=== PATIENT | male | born 1980 | race Caucasian/White ===

== ENCOUNTER 2016-10-17 08:55 | Emergency (ER) | payer OTHER ==
[~2016-10-17] VITALS: Ht 177.8 cm; Wt 98.0 kg
[2016-10-17 11:10] VITALS: BP 129/58
== END 2016-10-17 11:10 | disposition home or self-care (01) ==
LOC: ED 08:55
DX: J03.90 Acute tonsillitis, unspecified (principal); B34.9 Viral infection, unspecified; R03.0 Elevated blood-pressure reading, without diagnosis of hypertension
CPT/HCPCS: J1100

== ENCOUNTER 2016-10-19 20:23 | Emergency (ER) | payer OTHER ==
[2016-10-19 20:58] VITALS: BP 137/90
== END 2016-10-20 00:34 | disposition left against medical advice (07) ==
LOC: ED 20:23
DX: Z53.21 Procedure and treatment not carried out due to patient leaving prior to being seen by health care provider (principal)

== ENCOUNTER 2018-01-11 09:22 | Emergency (ER) | payer OTHER ==
[~2018-01-11] VITALS: Ht 175.3 cm; Wt 97.2 kg
[2018-01-11 09:27] VITALS: Ht 175.3 cm; Wt 97.2 kg
[2018-01-11 10:29] LABS: CALCIUM 8.8 mg/dL (8.5-10.1); CARBON DIOXIDE 24.9 mmol/L (21-32); CHLORIDE SERUM 107 mmol/L (98-107); CREATININE SERUM 0.8 mg/dL (0.7-1.3); GFR1 > 60 mL/min; GLUCOSE SERUM 109 mg/dL (74-106); SODIUM SERUM 145 mmol/L (136-145)
[2018-01-11 10:47] LABS: BASOPHIL % 0.3 % (0-2); RED CELL DISTRIBUTION WIDTH 13.5 % (11.5-14.5)
[2018-01-11 11:11] LABS: PLATELET COUNT 428 x10^3mcL (130-400)
[2018-01-11 11:36] LABS: AMPHETAMINE QUAL UR NONE DETECTED (See below)
[2018-01-11 12:49] VITALS: BP 132/79
== END 2018-01-11 12:49 | disposition home or self-care (01) ==
LOC: ED 09:22
PROVIDERS: Emergency Medicine
DX: T40.5X1A Poisoning by cocaine, accidental (unintentional), initial encounter (principal); Y92.89 Other specified places as the place of occurrence of the external cause; R06.00 Dyspnea, unspecified
CPT/HCPCS: 83880; 85378; J2060; J2405; J7030; J7040; Q0092

== ENCOUNTER 2018-01-19 10:09 | Emergency (ER) | payer OTHER ==
[~2018-01-19] VITALS: Ht 175.3 cm; Wt 99.8 kg
[2018-01-19 10:14] VITALS: BP 157/101; Ht 175.3 cm; Wt 99.8 kg
== END 2018-01-19 10:43 | disposition home or self-care (01) ==
LOC: ED 10:09
DX: K62.5 Hemorrhage of anus and rectum (principal); F17.210 Nicotine dependence, cigarettes, uncomplicated; Z71.2 Person consulting for explanation of examination or test findings
CPT/HCPCS: 99406

== ENCOUNTER 2019-06-01 09:26 | Emergency (ER) | payer OTHER ==
[~2019-06-01] VITALS: Ht 180.3 cm; Wt 104.3 kg
[2019-06-01 09:30] VITALS: BP 132/82
== END 2019-06-01 10:58 | disposition home or self-care (01) ==
LOC: ED 09:26
DX: T23.202A Burn of second degree of left hand, unspecified site, initial encounter (principal); X17.XXXA Contact with hot engines, machinery and tools, initial encounter; Y93.89 Activity, other specified; Y92.89 Other specified places as the place of occurrence of the external cause; Y99.8 Other external cause status

== ENCOUNTER 2019-06-01 21:34 | Inpatient (IN) | payer OTHER ==
[~2019-06-01] VITALS: Ht 175.3 cm; Wt 87.2 kg
[2019-06-01 21:44] VITALS: Ht 175.3 cm; Wt 87.2 kg
[2019-06-02] VITALS (7 sets, daily range): BP systolic 123–145; BP diastolic 82–105
[2019-06-02 00:16] LABS: BASOPHIL % 0.1 % (0-2); PLATELET COUNT 385 x10^3mcL (130-400); RED CELL DISTRIBUTION WIDTH 12.8 % (11.5-14.5)
[2019-06-02 00:20] LABS: CARBON DIOXIDE 26.3 mmol/L (21-32); CHLORIDE SERUM 107 mmol/L (98-107); CREATININE SERUM 0.8 mg/dL (0.7-1.3); GFR1 > 60 mL/min; GLUCOSE SERUM 102 mg/dL (74-106); POTASSIUM SERUM 3.9 mmol/L (3.5-5.1); SODIUM SERUM 141 mmol/L (136-145)
[2019-06-02 00:25] LABS: ALKALINE PHOSPHATASE 103 U/L (46-116); ALT/SGPT 31 U/L (16-63); AST/SGOT 16 U/L (15-37); BILIRUBIN TOTAL 0.3 mg/dL (0.20-1.00); TOTAL PROTEIN, SERUM 7.1 g/dL (6.4-8.2)
[2019-06-02 00:26] LABS: ALBUMIN 3.3 g/dL (3.4-5.0)
[2019-06-02 06:07] LABS: CALCIUM 8.1 mg/dL (8.5-10.1); CARBON DIOXIDE 27.2 mmol/L (21-32); CHLORIDE SERUM 107 mmol/L (98-107); CREATININE SERUM 0.8 mg/dL (0.7-1.3); GFR1 > 60 mL/min; GLUCOSE SERUM 95 mg/dL (74-106); MAGNESIUM 1.9 mg/dL (1.8-2.4); PHOSPHOROUS 3.7 mg/dL (2.5-4.9); SODIUM SERUM 143 mmol/L (136-145)
[2019-06-02 06:09] LABS: BASOPHIL % 0.4 % (0-2); PLATELET COUNT 394 x10^3mcL (130-400); RED CELL DISTRIBUTION WIDTH 12.5 % (11.5-14.5)
[2019-06-02 23:21] LABS: microscopic required? NO
[2019-06-02 23:27] LABS: urine erythrocyte NEGATIVE (NEGATIVE)
[2019-06-02 23:36] LABS: AMPHETAMINE QUAL UR NONE DETECTED (See below)
[2019-06-03 04:13] VITALS: BP 138/94
[2019-06-03 06:27] LABS: CALCIUM 8.4 mg/dL (8.5-10.1); CARBON DIOXIDE 26.8 mmol/L (21-32); CHLORIDE SERUM 106 mmol/L (98-107); CREATININE SERUM 0.9 mg/dL (0.7-1.3); GFR1 > 60 mL/min; GLUCOSE SERUM 96 mg/dL (74-106); MAGNESIUM 1.8 mg/dL (1.8-2.4); PHOSPHOROUS 3.7 mg/dL (2.5-4.9); POTASSIUM SERUM 3.7 mmol/L (3.5-5.1); SODIUM SERUM 141 mmol/L (136-145)
[2019-06-03 08:03] VITALS: BP 123/87
[2019-06-03] MEDS ORDERED: CLEOCIN HCL150 MG PO (10:14)
[2019-06-03] MEDS ORDERED: SILVADENE1% TOP (10:15)
[2019-06-03] MEDS ORDERED: MOT600 PO (10:16)
[2019-06-03 10:32] VITALS: BP 123/87
[2019-06-03 11:23] LABS: BASOPHIL % 0.7 % (0-2); PLATELET COUNT 384 x10^3mcL (130-400); RED CELL DISTRIBUTION WIDTH 11.7 % (11.5-14.5)
[2019-06-03 11:49] VITALS: BP 137/96
[2019-06-03 12:23] VITALS: BP 137/96
== END 2019-06-03 13:07 | disposition home or self-care (01) | DRG 862 ==
LOC: ED 21:34 → MU 23:43 → DU 06-03 07:44
PROVIDERS: Emergency Medicine; ADMIT Internal Medicine
DX: T23.062D Burn of unspecified degree of back of left hand, subsequent encounter (principal); E44.1 Mild protein-calorie malnutrition; E83.51 Hypocalcemia; L03.114 Cellulitis of left upper limb; B95.61 Methicillin susceptible Staphylococcus aureus infection as the cause of diseases classified elsewhere; X16.XXXD Contact with hot heating appliances, radiators and pipes, subsequent encounter
CPT/HCPCS: 90715; G0378; J0690; J1885; J2405; J3010; J3370; J7030; J7060; Q0092

== ENCOUNTER 2019-10-03 16:23 | Emergency (ER) | payer OTHER ==
[~2019-10-03] VITALS: Ht 175.3 cm; Wt 108.9 kg
[~2019-10-03 16:23] MED LIST: CLEOCIN HCL150 MG PO; MOT600 PO; SILVADENE1% TOP
[2019-10-03 16:30] VITALS: Ht 175.3 cm; Wt 108.9 kg
[2019-10-03 18:51] VITALS: BP 167/113
== END 2019-10-03 18:51 | disposition home or self-care (01) ==
LOC: ED 16:23
DX: J11.1 Influenza due to unidentified influenza virus with other respiratory manifestations (principal)

== ENCOUNTER 2020-01-22 10:27 | Emergency (ER) | payer OTHER ==
[~2020-01-22] VITALS: Ht 177.8 cm; Wt 98.0 kg
[2020-01-22 10:32] VITALS: Ht 177.8 cm; Wt 98.0 kg
[2020-01-22 11:34] VITALS: BP 177/100
== END 2020-01-22 11:34 | disposition home or self-care (01) ==
LOC: ED 10:27
DX: S39.012A Strain of muscle, fascia and tendon of lower back, initial encounter (principal); X58.XXXA Exposure to other specified factors, initial encounter; Y93.89 Activity, other specified; Y92.89 Other specified places as the place of occurrence of the external cause; Y99.8 Other external cause status
CPT/HCPCS: J1885